=== PATIENT | male | born 1960 | race Caucasian/White ===

== ENCOUNTER 2025-02-03 14:32 | Emergency (ER) | payer MEDICARE, BC ==
[2025-02-03 15:55] LABS: EOSINOPHILS PERCENT AUTO 3.8 % (1.0-3.0); HEMATOCRIT 48.5 % (40.0-54.0); HEMOGLOBIN 16.4 g/dL (14.0-18.0); LYMPHOCYTES PERCENT AUTO 26.3 % (20.5-50.1); MEAN CORPUSCULAR HEMOGLOBIN 29.8 pg (27.0-34.0); MEAN CORPUSCULAR HGB CONC 33.8 g/dL (33.0-35.0); MEAN CORPUSCULAR VOLUME 88.2 fL (80-100); MONOCYTES PERCENT AUTO 6.2 % (2-8); NEUTROPHILS PERCENT AUTO 62.7 % (42.2-75.2); PLATELET COUNT,PLT 240 10^3/uL (150-450); WHITE BLOOD CELL COUNT,WBC 7.8 10^3/uL (5.0-10.0)
[2025-02-03 16:25] LABS: A/G RATIO 0.8; ALANINE AMINOTRANSFERASE,ALT 61 U/L (16-63); ALBUMIN 3.6 g/dL (3.4-5.0); ALKALINE PHOSPHATASE 66 U/L (46-116); ANION GAP 13.5 mEq/L (7-13); ASPARTATE AMNIOTRANSFERASE,AST 23 U/L (15-37); BILIRUBIN TOTAL 0.6 mg/dL (0.2-1.0); BLOOD UREA NITROGEN,BUN 19 mg/dL (7-18); BUN/CREATININE RATIO 17.6 (No establ ref range); CARBON DIOXIDE,CO2 28 mmol/L (21-32); CHLORIDE,CL 102 mmol/L (98-107); CREATININE 1.08 mg/dL (0.70-1.30); GLUCOSE RANDOM 94 mg/dL (70-99); POTASSIUM,K 4.5 mmol/L (3.5-5.1); SODIUM,NA 139 mmol/L (136-145)
[2025-02-03 16:26] LABS: ESTIMATED GFR 76 mL/min (>=60)
== END 2025-02-03 15:59 | disposition home or self-care (01) ==
LOC: DL.ED 14:32
DX: I10 Essential (primary) hypertension (principal); Z87.891 Personal history of nicotine dependence
CPT/HCPCS: 36415; 80053; 83735; 85025; 99283

== ENCOUNTER 2025-04-05 06:18 | Day surgery (SDC) | payer MEDICARE, BC ==
[2025-04-05] MEDS ORDERED: Propofol 200 MG/20 ML SDV IV ONE (06:19)
[2025-04-05] MEDS ORDERED: Lactated Ringers 1,000 ML IV ONE (06:19)
[2025-04-05] MEDS ORDERED: Propofol 200 MG/20 ML SDV ONE ×3 (06:40→09:54)
[2025-04-05] MEDS: Lactated Ringers 1,000 ML IV SCH (06:41)
== END 2025-04-05 09:23 | disposition home or self-care (01) ==
LOC: DL.ENDO 06:18
PROVIDERS: ATTEND Internal Medicine Gastroenterology
DX: Z12.11 Encounter for screening for malignant neoplasm of colon (principal); D12.2 Benign neoplasm of ascending colon; D12.3 Benign neoplasm of transverse colon; K64.4 Residual hemorrhoidal skin tags; K64.8 Other hemorrhoids; K57.30 Diverticulosis of large intestine without perforation or abscess without bleeding; I10 Essential (primary) hypertension; E78.5 Hyperlipidemia, unspecified; E66.09 Other obesity due to excess calories; Z68.39 Body mass index [BMI] 39.0-39.9, adult; Z79.899 Other long term (current) drug therapy
CPT/HCPCS: 00811; 45385; 88305; J2704; J7120